=== PATIENT | male | born 1975 | race Caucasian/White ===

== ENCOUNTER 2021-03-22 09:26 | Emergency (ER) | payer SELFPAY ==
[~2021-03-22] VITALS: Ht 188 cm; Wt 92.0 kg
--- NOTE | 2021-03-22 09:54 | NUR ---
Pt brought back from [facility] with chief complaint of covid positive last week, with consistent dry cough. nNo other symptoms reported
--- NOTE | 2021-03-22 10:20 | NUR ---
sulaiman lee at bedside for eval
[2021-03-22] MEDS ORDERED: ALBUTEROL/IPRATROPIUM 2.5MG/0.5MG, 3 ML NPPB ONE (10:30)
[2021-03-22] MEDS ORDERED: DEXAMETHASONE 4 MG TABLET PO ONE (10:30)
[2021-03-22] MEDS ORDERED: DEXAMETHASONE 4 MG TABLET ONE (10:34)
[2021-03-22] MEDS ORDERED: ALBUTEROL/IPRATROPIUM 2.5MG/0.5MG, 3 ML ONE (10:34)
--- NOTE | 2021-03-22 11:04 | NUR ---
AURORA DELACRUZ AT BEDSIDE TO DISCUSS POC
[2021-03-22 11:27] VITALS: BP 129/71
--- NOTE | 2021-03-22 11:27 | NUR ---
DC INSTRUCTIONS REVIEWED
== END 2021-03-22 11:36 | disposition home or self-care (01) ==
LOC: ED 11:20
DX: U07.1 COVID-19 (principal); J06.9 Acute upper respiratory infection, unspecified; R06.02 Shortness of breath
CPT/HCPCS: 71045; 94640; 99283